=== PATIENT | female | born 1980 | race African-American/Black ===

== ENCOUNTER 2016-07-14 23:28 | Emergency (ER) | payer OTHER ==
--- NOTE | ~2016-07-14 | CR72 ---
[facility]. [facility] A Service [facility] RADIOLOGY TEXT RESULTS PATIENT: DC BENAVIDES LOCATION: SED : 80 UNIT #: [id number] AGE: [address]: Geovanny Rene MD SEX: F ORDER DR: [id number] [place] [id number] MR#: [id number] Acc #: [id number] NAME: DC BENAVIDES : 1980 SEX: F STUDY DATE/TIME: 07/15/2016 1:02 UNIT: SED ROOM: STUDY DESCRIPTION: CR Chest Single View Portable Attending Physician: Geovanny Rene M.D. Ordering Physician: Geovanny Rene M.D. Primary Care Physician: Donavon Gutierrez M.D. MEDICAL IMAGING REPORT This report is preliminary unless electronic signature is present. EXAM Chest x-ray, 07/15/2016. HISTORY 35-year-old female in the ED complaining of 1-week history of chest pain. She describes pain between the shoulder blades extending into the arms and jaw. TECHNIQUE AP portable chest x-ray. FINDINGS Heart size and pulmonary vascularity are within normal limits. No acute pulmonary infiltrate or pleural effusion is visible. Tiny benign calcified granuloma left lateral mid lung. IMPRESSION No active disease. Dictated by... Farhad Stewart M.D. THIS IS AN ELECTRONICALLY VERIFIED REPORT Farhad Stewart M.D. at 07/15/2016 9:56 PM RGW/tmw TD: 07/15/2016 10:45 JOB #: [id number] MEDICAL IMAGING REPORT [facility] A Service [facility] RADIOLOGY TEXT RESULTS PATIENT: DC BENAVIDES LOCATION: SED : 80 UNIT #: [id number] AGE: [address]: Geovanny Rene MD SEX: F ORDER DR: Page 1 of 1
--- NOTE | ~2016-07-14 | EKG ---
PATIENT: DC BENAVIDES UNIT #: [id number] Ventricular Rate: 79 BPM Atrial Rate: 79 BPM P-R Interval: 182 ms QRS Duration: 82 ms Q-T Interval: 400 ms QTC Calculation(Bezet): 458 ms P Petros: 33 degrees Calculated R Petros: 16 degrees Calculated T Petros: 17 degrees Diagnosis Line: Normal sinus rhythm Diagnosis Line: Normal ECG Diagnosis Line: No previous ECGs available Diagnosis Line: Confirmed by STEVO DURÁN MD ([id number]) on Diagnosis Line: 07/16/2016 3:40:44 PM INTERPRETING MD: LEEANNA COLLINS
[~2016-07-14 23:28] MED LIST: FLEXERIL10 M1 PO; FLEXERIL10 MG PO; IBUPROFEN800 MG PO; MEDROL4 MG/DOSE- PO; NAPROSYN500 MG PO; ORUDIS75 M1 PO; ULTRAM PO
[2016-07-15 00:33] LABS: BASOPHIL% 0.6 % (0-2.5); EOSINOPHIL# 0.1 X10e3 (0-0.7); EOSINOPHIL% 1.1 % (0.0-7.0); HEMATOCRIT 39.5 % (35.0-45.0); LYMPHOCYTE# 2.6 X10e3 (1.0-3.5); LYMPHOCYTE% 39.9 % (17.0-45.0); MEAN CELL VOLUME 81.2 FL (83-96); MEAN CORPUSCULAR HEMOGLOBIN 26.8 PG (28-34); MONOCYTE# 0.4 X10e3 (0-1.0); MONOCYTE% 6.6 % (3.0-12.0); NEUTROPHIL# 3.3 X10e3 (1.5-7.1); NEUTROPHIL% 51.8 % (40-75); PLATELET COUNT 264 X10e3 (140-420); RED BLOOD COUNT 4.86 X10e (3.90-5.30); RED CELL DISTRIBUTION WIDTH 15.4 % (11.0-15.5); WHITE BLOOD COUNT 6.4 X10e3 (4.0-10.5)
[2016-07-15 00:36] LABS: DIFF IND NO
[2016-07-15 00:49] LABS: POC - CKMB <1.0 ng/mL (0.0-7.9); POC - TROPONIN <0.05 ng/mL (<=0.05)
[2016-07-15 00:54] LABS: ALBUMIN SERUM 3.7 g/dL (3.5-5.0); BILIRUBIN, DIRECT 0.1 mg/dL (0.0-0.2); BILIRUBIN,INDIRECT 0.2 mg/dL (0.0-0.9); BILIRUBIN,TOTAL 0.3 mg/dL (0.2-2.0); BUN/CREATININE RATIO 12.5; CALCIUM SERUM 8.9 mg/dL (8.4-10.2); CREATININE SERUM 0.8 mg/dL (0.6-1.4); GLOM FILT RATE Estimated 110.8 mL/min (>60); PROTEIN TOTAL SERUM 7.5 g/dL (6.0-8.3)
== END 2016-07-15 02:49 | disposition home or self-care (01) ==
LOC: SED 23:28
PROVIDERS: Emergency Medicine
DX: S29.012A Strain of muscle and tendon of back wall of thorax, initial encounter (principal); M94.0 Chondrocostal junction syndrome [Tietze]; J45.909 Unspecified asthma, uncomplicated; F17.200 Nicotine dependence, unspecified, uncomplicated; Z88.0 Allergy status to penicillin; Z88.2 Allergy status to sulfonamides
CPT/HCPCS: 71010; 80048; 80076; 82553; 84484; 85025; 93005; 96360; 99284